=== PATIENT | female | born 1960 | race Caucasian/White ===

== ENCOUNTER 2020-07-04 12:10 | Emergency (ER) | payer OTHER ==
[2020-07-04 12:29] VITALS: BP 151/87; PULSE 81; RESP 16; TEMP 97.8
--- NOTE | 2020-07-04 12:37 | ED ---
Upper Extremity HPI - General Chief Complaint: Extremity Injury, Upper Stated Complaint: [facility] R hand injury Time Seen by Provider: 07/04/20 12:29 Source: patient, RN notes reviewed Mode of arrival: ambulatory Limitations: no limitations - History of Present Illness Initial Comments: This is a 59-year-old female presents emergency Department with chief complaint of right hand, right wrist and forearm injury. Patient states she went full box backward states that she fell onto her wrist and hand. Patient states she is [id number] she states she has moderate pain and swelling patient denies any significant head injury back pain or neck pain. She states she did bump her head but had no loss conscious. Denies any blood thinners. Patient states that she has been icing for last 2 hours with no relief of her symptoms. - Related Data Previous Rx's Medication Instructions Recorded Ibuprofen [Motrin] 600 mg PO Q8HR PRN #20 tab 07/04/20 Allergies Allergy/AdvReac Type Severity Reaction Status Date / Time No Known Allergies Allergy Verified 07/04/20 12:24 Review of Systems ROS Statement: Those systems with pertinent positive or pertinent negative responses have been documented in the HPI. ROS Other: All systems not noted in ROS Statement are negative. Past Medical History Past Medical History: No Reported History History of Any Multi-Drug Resistant Organisms: None Reported Past Surgical History: No Surgical Hx Reported Past Psychological History: No Psychological Hx Reported Smoking Status: Current every day smoker Past Alcohol Use History: Occasional Past Drug Use History: None Reported General Exam Limitations: no limitations General appearance: alert, in no apparent distress Head exam: Present: atraumatic, normocephalic, normal inspection Neck exam: Present: normal inspection, full ROM. Absent: tenderness, meningismus, lymphadenopathy Respiratory exam: Present: normal lung sounds bilaterally. Absent: respiratory distress, wheezes, rales, rhonchi, stridor Cardiovascular Exam: Present: regular rate, normal rhythm, normal heart sounds. Absent: systolic murmur, diastolic murmur, rubs, gallop, clicks Extremities exam: Present: other (Right hand and wrist shows moderate swelling, tenderness with palpation patient has had some mild snuffbox tenderness. Patient does not have any proximal forearm tenderness neurovascular intact no tenderness of the right humerus) Back exam: Present: full ROM. Absent: tenderness Neurological exam: Present: alert, oriented X3, reflexes normal. Absent: motor sensory deficit Skin exam: Present: warm, dry, intact, normal color. Absent: rash Course Vital Signs 07/04/20 12:25 Temperature 97.8 F Pulse Rate 81 Respiratory 16 Rate Blood Pressure 151/87 O2 Sat by Pulse 98 Oximetry Procedures - Orthopedic Splinting/Casting Injury #1 Side: right Upper Extremity Injury Location: short arm, wrist Upper Extremity Immobilizer: volar splint, synthetic pre-padded splint Medical Decision Making - Medical Decision Making X-rays reviewed which shows intra-articular fracture to right radius. Patient was splinted follow-up with orthopedics. Disposition Clinical Impression: Distal radius fracture, right Disposition: HOME SELF-CARE Condition: Stable Instructions (If sedation given, give patient instructions): Arm Fracture in Adults (ED) Additional Instructions: Please return to the Emergency Department if symptoms worsen or any other concerns. Prescriptions: Ibuprofen [Motrin] 600 mg PO Q8HR PRN #20 tab PRN Reason: Pain Is patient prescribed a controlled substance at d/c from ED?: No Referrals: None,Stated [Primary Care Provider] - 1-2 days Miky Bustamante MD [STAFF PHYSICIAN] - 1-2 days Time of Disposition: 13:08
--- NOTE | 2020-07-04 13:10 | XR ---
EXAMINATION TYPE: XR forearm RT DATE OF EXAM: 07/04/2020 COMPARISON: NONE HISTORY: Pain Two views of the forearm demonstrate a linear lucency involving the articular surface the distal radi us. Remaining osseous structures intact. Joint spaces preserved. Severe arthropathy of the first carp al metacarpal joint. IMPRESSION: 1. Findings suspicious for hairline intra-articular fracture of the distal radius nondisplaced. Corre late with point tenderness.
--- NOTE | 2020-07-04 13:12 | XR ---
EXAMINATION TYPE: XR hand complete RT DATE OF EXAM: 07/04/2020 COMPARISON: NONE HISTORY: Pain TECHNIQUE: Three views are submitted. FINDINGS: The osseous structures are intact. Severe arthropathy of the first carpal metacarpal joint. Mild arth ropathy of the MCP joint. Arthropathy of the DIP joints noted. IMPRESSION: 1. Linear lucency involving the distal radius is not seen on the hand xray. If there is point tendern ess consider CT scan for further evaluation. 2. Arthropathy.
[2020-07-04] MEDS ORDERED: IBUPROFEN 600 MG TAB PO STA (13:21)
[2020-07-04] MEDS ORDERED: ACET/COD 300 MG/30 MG STARTER PACK 6 TAB BTL PO STA (13:22)
== END 2020-07-04 13:25 | disposition home or self-care (01) ==
LOC: EC 12:10
DX: S52.501A Unspecified fracture of the lower end of right radius, initial encounter for closed fracture (principal); F17.200 Nicotine dependence, unspecified, uncomplicated; W18.30XA Fall on same level, unspecified, initial encounter; Y93.89 Activity, other specified
CPT/HCPCS: 29125; 99283